=== PATIENT | female | born 1975 | race Caucasian/White ===

== ENCOUNTER → 2017-10-03 09:14 | Outpatient (CLI) | payer MEDICAID, SELFPAY ==
[2017-10-03 10:08] LABS: Abs Immature Grans 0.01 k/cumm (0.0-0.09); Absolute Basophil Count 0.01 k/cumm (0.0-0.2); Absolute Eosinophil Count 0.05 k/cumm (0.0-0.7); Absolute Lymphocyte Count 1.09 k/cumm (1.2-3.4); Absolute Monocyte Count 0.51 k/cumm (0.11-0.7); Absolute Neutrophil Count 2.27 k/cumm (1.2-6.7); Basophils % 0.3; Eosinophils % 1.3; HCT 35.9 % (36.0-46.0); Immature Grans % 0.3; Lymphocytes % 27.7; Mean Corp. HGB Concentration 33.4 g/dL (32.0-36.0); Mean Corpuscular Hemoglobin 28.3 pg (27.0-33.0); Mean Corpuscular Volume 84.7 fL (80-95); Mean Platelet Volume 11.6 fL (8.0-11.0); Monocytes % 12.9; Neutrophils % 57.5; Platelet Count 216 x1000/uL (130-400); RBC 4.24 m/cumm (4.00-5.20); White Blood Cell Count 3.94 k/cumm (4.4-10.8)
[2017-10-03 11:29] LABS: ALT 41 U/L (12-78); AST 24 U/L (15-37); Albumin 3.8 g/dL (3.4-5.0); Alkaline Phosphatase 92 U/L (46-116); Anion Gap 9.6 mmol/L (3-11); BUN 9 mg/dL (7-18); Bilirubin, Total 0.2 mg/dL (0.2-1.0); CO2 24.4 mmol/L (21.0-32.0); Calcium 8.4 mg/dL (8.5-10.1); Chloride 105 mmol/L (98-107); Cholesterol 171 mg/dL (50-200); Glucose 95 mg/dL (70-100); HDL Cholesterol 49 mg/dL (40-60); LDL CHOLESTEROL 106 mg/dL (<100); Potassium 4.2 mmol/L (3.5-5.1); Sodium 139 mmol/L (136-145); Total Protein 7.2 g/dL (6.4-8.2); Triglyceride 109 mg/dL (30-150)
== END ==
PROVIDERS: PCP Nurse Practitioner; Visit Provider Nurse Practitioner
DX: E03.9 Hypothyroidism, unspecified (principal); Z13.220 Encounter for screening for lipoid disorders
CPT/HCPCS: 36415; 80053; 80061; 83721; 84443; 85025

== ENCOUNTER → 2017-10-09 00:57 | Outpatient (CLI) | payer MEDICAID, SELFPAY ==
--- NOTE | 2017-10-09 10:51 | DI.REPORT_ITS ---
SYMPTOM/DIAGNOSIS: SCREENING, BREAST CANCER SCREENING Z12.31 MAMMOGRAM: 10/09 Mammograms were interpreted according to the usual protocol including computer analysis with CAD system, tomosynthesis and C view imaging. The breasts are of moderate density with fairly symmetrical distribution of fibroglandular tissue. No dominant mass or clumped microcalcification is identified in either breast. Today's examination is a baseline examination. CONCLUSION: No specific evidence of malignancy at this time. Routine screening at yearly intervals in this age group according to the ACS/ACR guidelines. Category 1 breast density category B. MQSA ASSESSMENT OF FINDINGS: Negative. Category 1. Patient will receive a letter notifying them of these results. BI-RADS category B. There are scattered areas of fibroglandular density.
== END ==
PROVIDERS: PCP Nurse Practitioner; Visit Provider Nurse Practitioner
DX: Z12.31 Encounter for screening mammogram for malignant neoplasm of breast (principal)
CPT/HCPCS: 77063; 77067

== ENCOUNTER 2018-08-11 11:06 | Outpatient (CLI) | payer MEDICAID, SELFPAY ==
[2018-08-11 12:25] LABS: TSH (W/Ref FT4) 0.76 uIU/mL (0.358-3.74)
== END 2018-08-11 11:26 ==
PROVIDERS: PCP Nurse Practitioner; Visit Provider Nurse Practitioner
DX: E03.9 Hypothyroidism, unspecified (principal)
CPT/HCPCS: 36415; 84443

== ENCOUNTER → 2019-09-24 02:47 | Outpatient (CLI) | payer SELFPAY ==
[2019-09-24 08:51] LABS: HCT 34.8 % (36.0-46.0); HGB 11.1 g/dL (11.2-15.7); MCH 25.8 pg (27.0-33.0); MCHC 31.9 % (32.0-36.0); MCV 80.9 fL (80-95); MPV 11.3 fL (8.0-11.0); Platelet Count 284 10^3/uL (130-400); RDW 13.7 % (11.7-14.6); RDW-SD 40.1 fL; WBC 4.81 10^3/uL (4.4-10.8)
[2019-09-24 09:46] LABS: ALT 32 U/L (14-59); AST 17 U/L (15-37); Albumin 3.8 g/dL (3.4-5.0); Alkaline Phosphatase 98 U/L (46-116); Anion Gap 9.2 mmol/L (3-11); BUN 14 mg/dL (7-18); Bilirubin, Total 0.3 mg/dL (0.2-1.0); CO2 23.8 mmol/L (21.0-32.0); Calcium 8.4 mg/dL (8.5-10.1); Calculated LDL 136 mg/dL (<100); Chloride 106 mmol/L (98-107); Cholesterol 191 mg/dL (<200); Glucose 97 mg/dL (74-106); HDL Cholesterol 40 mg/dL (40-60); Sodium 139 mmol/L (136-145); TSH (W/Ref FT4) 1.05 uIU/mL (0.36-3.74); Total Protein 7.3 g/dL (6.4-8.2); Triglyceride 77 mg/dL (<150)
== END ==
PROVIDERS: PCP Nurse Practitioner; Visit Provider Nurse Practitioner
DX: E03.9 Hypothyroidism, unspecified (principal); E66.9 Obesity, unspecified; F32.9 Major depressive disorder, single episode, unspecified; I10 Essential (primary) hypertension
CPT/HCPCS: 36415; 80053; 80061; 85027; 84443

== ENCOUNTER 2020-08-10 14:18 | Outpatient (REF) | payer OTHER, SELFPAY ==
--- NOTE | 2020-08-10 13:30 | PAPFT_PTH ---
PATIENT: Daphne Samson LOC: [facility] U#:[id number] AGE/SX: 44/F ROOM: RE08/10/[address]: Minerva Muse APRN : 1975 BED: DIS: 08/10/2020 SPEC #: [id number] RECD: 08/11/20 12:33 STATUS: FLORINA REMahad #: [id number] CHARLENE: 08/10/20 13:[address]: Minerva Muse DEPT: [facility] Cytology RECD BY: Marie Rodriguez Tissues: 1 - CX/ENDOCX FOR PAP SMEARS Procedures: PAP THIN PREP/UVM Screening HPV DNA PROBE Comments: [id number]
== END 2020-08-10 14:19 | disposition home or self-care (01) ==
LOC: LBN 14:18
PROVIDERS: PCP Nurse Practitioner; Visit Provider Nurse Practitioner
DX: Z12.4 Encounter for screening for malignant neoplasm of cervix (principal); Z11.51 Encounter for screening for human papillomavirus (HPV)
CPT/HCPCS: 88142; 87624

== ENCOUNTER 2020-08-16 03:09 | Outpatient (CLI) | payer OTHER, SELFPAY ==
[2020-08-16 12:28] LABS: HCT 33.5 % (36.0-46.0); HGB 10.5 g/dL (11.2-15.7); MCH 24.5 pg (27.0-33.0); MCHC 31.3 % (32.0-36.0); MCV 78.1 fL (80-95); MPV 11.3 fL (8.0-11.0); Platelet Count 320 10^3/uL (130-400); RBC 4.29 10^6/uL (3.93-5.22); RDW 14.3 % (11.7-14.6); RDW-SD 40.5 fL; WBC 4.81 10^3/uL (4.4-10.8)
[2020-08-16 14:14] LABS: ALT 25 U/L (14-59); AST 19 U/L (15-37); Albumin 3.9 g/dL (3.4-5.0); Alkaline Phosphatase 86 U/L (46-116); Anion Gap 10.7 mmol/L (3-11); BUN 9 mg/dL (7-18); Bilirubin, Total 0.3 mg/dL (0.2-1.0); CO2 24.3 mmol/L (21.0-32.0); CREATININE 0.7 mg/dL (0.55-1.02); Calcium 8.7 mg/dL (8.5-10.1); Calculated LDL 106 mg/dL (<100); Chloride 104 mmol/L (98-107); Cholesterol 175 mg/dL (<200); Glucose 77 mg/dL (74-106); HDL Cholesterol 43 mg/dL (40-60); Potassium 4.2 mmol/L (3.5-5.1); Sodium 139 mmol/L (136-145); TSH (W/Ref FT4) 0.83 uIU/mL (0.36-3.74); Total Protein 7.4 g/dL (6.4-8.2); Triglyceride 133 mg/dL (<150)
== END 2020-08-16 03:10 | disposition home or self-care (01) ==
LOC: LBO 03:09
PROVIDERS: PCP Nurse Practitioner; Visit Provider Nurse Practitioner
DX: E03.9 Hypothyroidism, unspecified (principal); Z00.00 Encounter for general adult medical examination without abnormal findings; Z13.220 Encounter for screening for lipoid disorders
CPT/HCPCS: 36415; 80053; 80061; 85027; 84443

== ENCOUNTER 2020-08-24 01:39 | Outpatient (CLI) | payer OTHER, SELFPAY ==
--- NOTE | 2020-08-24 09:00 | DI.MAMMO_ITS ---
Exam(s) MAMMO SCREENING EXAM: MAMMO SCREENING CLINICAL HISTORY: screening Z12.39. TECHNIQUE: Bilateral full field digital CC and MLO mammographic images were obtained with 3D tomosyn thesis and utilizing computer aided detection (CAD). COMPARISON: Prior 2018 baseline mammogram FINDINGS: There are no new spiculated masses nor malignant appearing microcalcification groups. There is no significant architectural distortion nor skin thickening-retraction. IMPRESSION: No radiographic evidence of malignancy. No significant change compared to the prior baseline mammogra m performed in 2018 BI-RADS Category 1 - Negative Breast Density - Category B - Scattered areas of fibroglandular density Breast density Category C or D implies that the patient has dense breast tissue. Dense breast tissue can make it harder to find cancer on a mammogram. Dense breast tissue is also associated with an incr eased risk of breast cancer. This information about the result of the mammogram report was provided to the patient to raise their awareness. Use this report when you speak with the patient about their risks for breast cancer, which includes their family history. At that time, you may recommend additional screening tests (Ultrasoun d or MRI) as these tests may add significant information. A negative radiographic report should not delay biopsy if a dominant or clinically suspicious mass is present. Up to ten percent of cancers are not identified on mammography. A negative report may reinforce clinical impression. Adenosis and dense breasts may obscure an underlying neoplasm. False positive reports average 6 to 10%. Patient will receive a letter notifying them of these results.
== END 2020-08-24 01:59 ==
PROVIDERS: PCP Nurse Practitioner; Visit Provider Nurse Practitioner
DX: Z12.31 Encounter for screening mammogram for malignant neoplasm of breast (principal); R92.8 Other abnormal and inconclusive findings on diagnostic imaging of breast
CPT/HCPCS: 77063; 77067

== ENCOUNTER 2020-12-16 12:26 | Outpatient (REF) | payer OTHER, SELFPAY | END 2020-12-16 12:27 | disposition home or self-care (01) | LOC: LBN 12:26 | PROVIDERS: PCP Nurse Practitioner | DX: Z20.822 Contact with and (suspected) exposure to COVID-19 (principal) | CPT/HCPCS: U0003 ==

== ENCOUNTER 2020-12-29 17:34 | Outpatient (REF) | payer OTHER, SELFPAY ==
[2020-12-30 20:34] LABS: COVID-19 RT-PCR UVMMC Result Negative (Negative)
== END 2020-12-29 17:35 | disposition home or self-care (01) ==
LOC: LBN 17:34
PROVIDERS: PCP Nurse Practitioner; Visit Provider Pediatrics
DX: Z20.822 Contact with and (suspected) exposure to COVID-19 (principal)
CPT/HCPCS: U0003

== ENCOUNTER 2021-03-20 17:11 | Outpatient (REF) | payer OTHER, SELFPAY ==
[2021-03-20 17:31] LABS: Source Nasal/Nares
[2021-03-20 19:59] LABS: COVID-19 PCR Negative (Negative)
== END 2021-03-20 17:12 | disposition home or self-care (01) ==
LOC: LBN 17:11
PROVIDERS: PCP Nurse Practitioner; Visit Provider Student in an Organized Health Care Education/Training Program
DX: Z20.822 Contact with and (suspected) exposure to COVID-19 (principal)
CPT/HCPCS: 87635

== ENCOUNTER 2021-09-05 02:52 | Outpatient (CLI) | payer OTHER, SELFPAY ==
[2021-09-05 07:49] LABS: Hemoglobin A1C 5.9 % (<5.7)
[2021-09-05 09:23] LABS: ALT 14 U/L (14-59); AST 14 U/L (15-37); Albumin 3.8 g/dL (3.4-5.0); Alkaline Phosphatase 82 U/L (46-116); Anion Gap 12.4 mmol/L (3-11); BUN 14 mg/dL (7-18); Bilirubin, Total 0.3 mg/dL (0.2-1.0); CO2 25.6 mmol/L (21.0-32.0); CREATININE 0.8 mg/dL (0.55-1.02); Calcium 8.6 mg/dL (8.5-10.1); Calculated LDL 115 mg/dL (<100); Chloride 104 mmol/L (98-107); Cholesterol 177 mg/dL (<200); Glucose 89 mg/dL (74-106); HDL Cholesterol 43 mg/dL (40-60); Potassium 3.6 mmol/L (3.5-5.1); Sodium 142 mmol/L (136-145); TSH (W/Ref FT4) 1.99 uIU/mL (0.36-3.74); Total Protein 7.5 g/dL (6.4-8.2); Triglyceride 97 mg/dL (<150)
== END 2021-09-05 02:53 | disposition home or self-care (01) ==
LOC: LBO 02:53
PROVIDERS: PCP Nurse Practitioner; Visit Provider Nurse Practitioner
DX: E03.9 Hypothyroidism, unspecified (principal); I10 Essential (primary) hypertension; E11.9 Type 2 diabetes mellitus without complications; E66.9 Obesity, unspecified
CPT/HCPCS: 36415; 80053; 80061; 83036; 84443

== ENCOUNTER 2022-03-04 09:30 | Emergency (ER) | payer OTHER, SELFPAY ==
[2022-03-04 09:32] VITALS: BP 151/99; PULSE 99; RESP 17; TEMP 36.5; O2SAT 100
--- NOTE | 2022-03-04 09:45 | RT.EKG_ITS ---
APPROVED REPORT Exam: Resting ECG Reason for Exam: epigastric pain Patient Location: E HR:94 bpm ECG Measurements Heart Rate 94 AXIS NH 195 P 54 QRSd 109 QRS 25 QT 388 T 44 QTc 487 Conclusion Sinus rhythm...normal P axis, V-rate 60- 99 Nonspecific repolarization abnormalities...ST dep, T neg, 2-3 leads
--- NOTE | 2022-03-04 10:00 | DI.CT_ITS ---
Exam(s) CT ABDOMEN PELVIS W EXAM: CT ABDOMEN PELVIS W CLINICAL HISTORY: n/v, upper abdominal pain. TECHNIQUE: Imaging Protocol: Axial computed tomography images with coronal and sagittal reformatted images were created and reviewed CONTRAST MATERIAL: Intravenous: Omnipaque 350 Contrast volume:100 ml Oral: no FINDINGS: ABDOMEN: Lung Bases: Normal where visualized. Small hiatal hernia. Liver: Normal density. No measurable mass. Gallbladder and biliary tract: No radiodense calculus or dilation. Pancreas: Normal density, no abnormal calcifications or inflammatory process. Spleen: Normal. Kidneys: Normal size, contour and axis. No radiodense stones or obstructive uropathy. No masses seen. Adrenal glands: No masses seen. Abdominal Aorta: Abdominal portion non-dilated. PELVIS: Bladder: No gross wall thickening. No calculi.No focal mass. Bowel: No obstruction. The majority of colon is collapse. Question of diffuse colonic wall thickeni ng to could indicate colitis.. Appendix normal. Peritoneal cavity: No ascites, collection or mesenteric inflammatory response. Bones: Within normal limits for age. Reproductive organs: 9 x 6 centimeter simple appearing cyst of the right ovary. This deviates the ut erus toward the left. A cyst measuring 6.7 cm in maximal dimension was noted in 2009 pelvic ultrasou nd. Left ovary appears normal. Tampon in the vagina. Lymph nodes: Unremarkable. Impression: Diffuse colonic wall thickening consistent with colitis. 9 x 6 centimeter simple appearing cyst of right ovary. RADIATION DOSE DELIVERED: 1,187.03mGy.cm Total DLP DATA REPOSITORY: All CT scans at this facility are submitted to the National Radiology Data Registry (NRDR) Dose Index Registry (DIR) with the [employer] (ACR). RADIATION OPTIMIZATION: All CT scans at this facility use at least one of these dose optimization te chniques: automated exposure control; mA and/or kV adjustment per patient size (includes targeted exa ms where dose is matched to clinical indication); or iterative reconstruction.
--- NOTE | 2022-03-04 10:02 | ED.GENADUL_ITS ---
Discharge Plan Disposition Patient Disposition: Home Condition: Stable Discharge Details Clinical Impression: Nausea & vomiting, Acute epigastric pain, Ovarian cyst Primary Care Provider: Minerva Muse ED Provider: Randy Murphy Home Meds and New Rx's Prescriptions: New ondansetron 4 mg tablet,disintegrating 4 mg PO Q8H PRN (Reason: nausea and vomiting) Qty: 30 0RF Continued buspirone 10 mg tablet 10 mg PO BID Qty: 180 3RF levothyroxine 125 mcg tablet 125 mcg PO DAILY Qty: 90 3RF sertraline [Zoloft] 100 mg tablet 200 mg PO DAILY Qty: 180 3RF Rx Instructions: anxiety and panic attacks semaglutide (weight loss) 2.4 mg/0.75 mL pen injector 2.4 mg subcut QWEEK Qty: 3 2RF Discharge Instructions Instructions: Acute Nausea and Vomiting (ED) Additional Instructions: you had evidence of inflammatin of the bowels which is likely due to a food illness or stomach bug. Both of these usually resolve without intervention in 1- 3 days you also were found to have a cyst of your ovary on the right side. Call women's wellness to arrange a follow up appointment [phone] if you feel more ill, have severe worsening pain or persistent vomiting return to the emergency department Medical Decision Making 46 yo female with hx of hypothyroidism, anxiety, prior tubal ligation who comes in with n/v and epigastric pain since last night shortly after eating meatloaf. She denies fevers, chills, chest pain, dyspnea. She states during the day she felt well yesterday. She is in no distress speaking clearly. She has clear lungs, no murmurs, soft abdomen though is tender without guarding in the ruq and epigastric area. Given rapid onset of symptoms suspect this could be food related illness, but given persistent symptoms and location of her pain will obtain cbc, cmp, troponin and CT to evaluate for possible cholecystitis and less likely sbo pt's labs show mild microcytic anemia that she has had in the past, she states she is supposed to be taking iron supplements but hasn't. She has evidence of colitis on the CT and also a 9x6cm cystic structure in the right hemipelvis which is likely ovarian cyst. She feels better after she had compazine, tolerating po and has no pain and denies ever having any pain in her lower abdomen or pelvis so feel this is likely an incidental finding, doubt torsion and do not feel u/s indicated currently. She is stable for d/c, will provide prescription for antiemetics and will also have her follow up with women's wellness, return precautions given Differential Diagnosis Differential Diagnosis: gastroenteritis, pancreatitis, cholecystitis Imaging Data Radiologic Study: Attestation: I personally reviewed and interpreted this imaging study as follows: Imaging: CT Scan Radiologist's impression: IMPRESSION: 1. Low-attenuation bowel wall thickening is seen throughout the colon consistent with colitis. Differential diagnosis includes infectious and inflammatory etiologies.. 2. 9 by 6 cm cystic structure in the right hemipelvis may represent right ovarian cyst or cystadenoma of the ovary. Malignancy left likely given the lack soft tissue density within the cystic structure Recommend further evaluation. Lab Data Lab results reviewed: Yes I reviewed the patient's lab results. ECG Data Attestation: I personally reviewed and interpreted this ECG (s) as follows: Prior ECG tracings: not available for review Interpretation: sinus rhythm rate of 94, no acute st t wave ischemic findings HPI General Mode of arrival: ambulatory . Date/Time Provider Initiated Documentation: 03/04/22 09:47 . Limitations to Documentation: no limitations . Information obtained by: patient . History of Present Illness 46 year old F presents to the emergency department with the chief complaint of n/v, described as moderate, Patient started experiencing this day(s) (1) and it has been intermittent. No relieving factors improve symptom(s), No exacerbating factors reported . Patient notes denies fever/chills. Patient did receive the following treatments prior to arrival, none Related Data Home Medications Medication Instructions Recorded Confirmed buspirone 10 mg tablet 10 mg PO BID #180 tab-caps 08/17/21 03/04/22 levothyroxine 125 mcg tablet 125 mcg PO DAILY #90 tab-caps 08/17/21 03/04/22 sertraline 100 mg tablet (Zoloft) 200 mg PO DAILY #180 tabs 08/17/21 03/04/22 semaglutide (weight loss) 2.4 2.4 mg (0.75 mL) subcut QWEEK #3 mL 01/04/22 03/04/22 mg/0.75 mL subcutaneous pen injector ondansetron 4 mg disintegrating 4 mg PO Q8H PRN nausea and 03/04/22 tablet vomiting #30 tabs Previous Rx's Medication Instructions Recorded buspirone 10 mg tablet 10 mg PO BID #180 tab-caps 08/17/21 levothyroxine 125 mcg tablet 125 mcg PO DAILY #90 tab-caps 08/17/21 sertraline 100 mg tablet (Zoloft) 200 mg PO DAILY #180 tabs 08/17/21 semaglutide (weight loss) 2.4 2.4 mg (0.75 mL) subcut QWEEK #3 mL 01/04/22 mg/0.75 mL subcutaneous pen injector ondansetron 4 mg disintegrating 4 mg PO Q8H PRN nausea and 03/04/22 tablet vomiting #30 tabs Allergies Allergy/AdvReac Type Severity Reaction Status Date / Time No Known Allergies Allergy Verified 03/04/22 09:38 General Stated Complaint: Abd Prob ROBBIE: 3 Review of Systems All systems reviewed & are unremarkable except as noted in HPI and below Constitutional Constitutional: Denies chills, Denies fever(s) and Denies weakness Cardiovascular Cardiovascular: Denies chest pain and Denies dyspnea Respiratory Respiratory: Denies cough and Denies dyspnea Musculoskeletal Musculoskeletal: Denies joint swelling Neurologic Neurologic: Denies weakness PFSH All Active Problems (Updated 03/04/22 @ 12:21 by Randy Murphy MD) Nausea & vomiting (Acute) Acute epigastric pain (Acute) Ovarian cyst (Acute) Prediabetes (Acute) Screening for cholesterol level (Acute) Routine gynecological examination (Acute) Routine medical exam (Acute) Obesity (Chronic) Depressive disorder (Chronic 04/19/11) Rupture of anterior cruciate ligament of left knee (Acute 05/17/17) Rupture of anterior cruciate ligament of knee (Acute 09/19/17) Obesity, unspecified (Acute 04/24/12) Mgrn wo aura wo intrc mgr (Acute 04/19/11) Used to get routinely; now only prn and treated easily with Motrin Lipoma of face (Acute 06/04/16) Hypothyroidism (Acute 04/09/11) Anxiety state (Acute 04/19/11) With panic Acute medial meniscus tear of left knee (Acute 05/17/17) Medical History Depressive disorder (04/19/11) Obesity Surgical History Tubal Ligation, Laparoscopic 2008 Incidental finding of ovarian cyst and removed with this surgery Family History Mother COPD (chronic obstructive pulmonary disease) Father Personal history of malignant neoplasm lung Social History (Updated 08/17/21 @ 13:15 by Ruby Toussaint LPN) Smoking/Tobacco Use Status: Never Smoking risk assessment performed?: Yes Alcohol Intake: current Alcohol Intake frequency: a few times a month Alcohol type: wine Drug use: Never Substance use type: does not use Adopted: No Household members: spouse and children Housing: house Number of Children: 3 number of grandchildren: 2 Communication Needs: None Education Level: college 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 [employer] Do you think of yourself as: straight/heterosexual What is your relationship status?: How often do you talk on the phone with friends or family?: three or more times per week How often do you get together with friends or relatives?: once per week Panel score (0-1 are the most socially isolated patients): 2 What type of physical activity do you participate in: walking Duration: 30-45 minutes/day Frequency: 5-6 times per week Seatbelt use: always Drive intox or ride w/intox passenger coach driver: No Working smoke detector in home: Yes Fire extinguisher in home: Yes Carbon monox detector in home: Yes Do you feel safe at home: No Do you feel safe in your relationship?: Yes Victim of physical abuse: No Victim of emotional abuse: No Victim of sexual abuse: No Would you like helpful sources: No Exam Const General: no acute distress Orientation: alert HENMT Head: normal to inspection Ears: external ears normal General nose exam: external nose normal Mouth: moist mucous membranes Eyes General: appearance normal, both eyes and all related structures Neck Neck: normal visual inspection Resp Effort & Inspection: normal respiratory effort and able to speak in complete sentences Auscultation: clear to auscultation bilaterally Cardio Rate: regular rate Heart Sounds: no murmurs GI Palpation: soft and tender Skin General skin exam: no rashes or lesions noted Neuro General: patient alert and patient oriented x3 Extrem General: normal to inspection Psych Mental Status: mental status grossly normal Course Vital Signs Vital signs: Vital Signs Temperature 36.5 C 03/04/22 09:32 Pulse 99 H 03/04/22 09:32 Respiratory Rate 17 03/04/22 09:32 Blood Pressure 151/99 H 03/04/22 09:32 Pulse Oximetry 100 03/04/22 09:32 Temperature 36.5 C 03/04/22 09:32 Temperature Source Temporal Artery Scan 03/04/22 09:32 Pulse 99 H 03/04/22 09:32 Respiratory Rate 17 03/04/22 09:32 Respiratory Effort Non-Labored 03/04/22 09:36 Blood Pressure 151/99 H 03/04/22 09:32 Blood Pressure Position Sitting 03/04/22 09:32 Pulse Oximetry 100 03/04/22 09:32 Oxygen Delivery Method Room Air 03/04/22 09:32 Oxygen Flow Rate 0 03/04/22 09:32 Pain Level 5 03/04/22 09:32 PAWSS Have you Been Recently Intoxicated or Drunk Within the Last 30 days?: No Have you Ever Experienced Previous Episodes of Alcohol Withdrawal?: No Have you ever Experienced Withdrawal Seizures?: No Have you ever Experienced Delirium Tremens(DT)s?: No Have you ever undergone Alcohol Rehabilitation Treatment (i.e, inpt ot outpa tient treatment programs)?: No Have you ever Experienced Blackouts?: No Have you ever Combined Alcohol with other Downers within the last 90 days?: No Have you ever Combined Alcohol with any other Substance of Abuse during the last 90 days?: No Result: 0
[2022-03-04] MEDS: Normal Saline 1,000 ML 1000 ML IV (10:12)
[2022-03-04] MEDS: Ondansetron 4 MG/2 ML VIAL IVP (10:12)
[2022-03-04 10:13] LABS: BE (Venous) -2 mmol/L (-2-3); HCO3 (Venous) 22 mmol/L (23-28); O2 Sat (Venous) 83 %; TCO2 (Venous) 20 mmol/L (24-29); pCO2 (Venous) 33 mmHg (41-51); pH (Venous) 7.43 (7.31-7.41); pO2 (Venous) 42 mmHg
[2022-03-04 10:15] LABS: Abs Immature Grans 0.01 10^3/uL (0.0-0.06); Absolute Basophil Count 0.01 10^3/uL (0.0-0.2); Absolute Eosinophil Count 0.06 10^3/uL (0.0-0.7); Absolute Monocyte Count 0.09 10^3/uL (0.1-0.8); Absolute Neutrophil Count 6.55 10^3/uL (1.2-6.7); Basophils % 0.1; Eosinophils % 0.8; HCT 35.6 % (36.0-46.0); HGB 11.3 g/dL (11.2-15.7); Immature Grans % 0.1; Lymphocytes % 6.9; MCH 23.9 pg (27.0-33.0); MCHC 31.7 % (32.0-36.0); MCV 75 fL (80-95); MPV 11.2 fL (8.0-11.0); Monocytes % 1.2; Neutrophils % 90.9; Platelet Count 384 10^3/uL (130-400); RBC 4.72 10^6/uL (3.93-5.22); RDW 14.4 % (11.7-14.6); RDW-SD 38.7 fL; WBC 7.22 10^3/uL (4.4-10.8)
[2022-03-04] MEDS: Omnipaque 350 MG/ML 100 ML BTL IJ (10:33)
[2022-03-04] MEDS: Normal Saline - Diluent 50 ML VIAL IJ (10:33)
[2022-03-04] MEDS: Normal Saline Flush 10 ML SYR IVP (10:33)
[2022-03-04 10:42] LABS: ALT 25 U/L (14-59); AST 21 U/L (15-37); Albumin 4.7 g/dL (3.4-5.0); Alkaline Phosphatase 119 U/L (46-116); Anion Gap 11.4 mmol/L (3-11); BUN 9 mg/dL (7-18); Bilirubin, Total 0.4 mg/dL (0.2-1.0); CO2 23.6 mmol/L (21.0-32.0); CREATININE 0.9 mg/dL (0.55-1.02); Chloride 101 mmol/L (98-107); Estimated GFR 80.84 (mL/min/1.73m2); Glucose 153 mg/dL (74-106); Lipase 98 U/L (73-393); Magnesium 2.1 mg/dL (1.8-2.4); Potassium 3.3 mmol/L (3.5-5.1); Sodium 136 mmol/L (136-145); Total Protein 9.3 g/dL (6.4-8.2); Troponin I < 50 ng/L (<or=60)
--- NOTE | 2022-03-04 10:57 | DI.VRAD_ITS ---
Addendum created by Amy Sainz MD on 03/04/2022 11:00:31 AM EST: THIS REPORT CONTAINS FINDINGS THAT MAY BE CRITICAL TO PATIENT CARE. The findings were verbally communicated via telephone conference with Randy Murphy at 11:00 AM EST on 03/04/2022. The findings were acknowledged and understood. We discussed if ovarian torsion is suspected to obtain duplex ultrasound Initial report created on 03/04/2022 10:57:25 AM EST: PROCEDURE INFORMATION: Exam: CT Abdomen And Pelvis With Contrast Exam date and time: 03/04/2022 10:34 AM Age: 46 years old Clinical indication: Other: N/v upper abdominal pain TECHNIQUE: Imaging protocol: Computed tomography of the abdomen and pelvis with contrast. Radiation optimization: All CT scans at this facility use at least one of these dose optimization techniques: automated exposure control; mA and/or kV adjustment per patient size (includes targeted exams where dose is matched to clinical indication); or iterative reconstruction. Contrast material: OMNIPAQUE 350; Contrast volume: 100 ml; Contrast route: INTRAVENOUS (IV); COMPARISON: MRI L LOWER JOINT WO CONT 10/15/2016 5:34 PM FINDINGS: Diaphragm: Small hiatal hernia Liver: Normal. No mass. Gallbladder and bile ducts: Normal. No calcified stones. No ductal dilation. Pancreas: Normal. No ductal dilation. Spleen: Normal. No splenomegaly. Adrenal glands: Normal. No mass. Kidneys and ureters: Normal. No hydronephrosis. Stomach and bowel: Low-attenuation bowel wall thickening is seen throughout the colon consistent with colitis. Differential diagnosis includes infectious and inflammatory etiologies.. Appendix: Normal appendix Intraperitoneal space: Unremarkable. No free air. No significant fluid collection. Vasculature: Unremarkable. No abdominal aortic aneurysm. Lymph nodes: Unremarkable. No enlarged lymph nodes. Urinary bladder: Unremarkable as visualized. Reproductive: 9 by 6 cm cystic structure in the right hemipelvis may represent right ovarian cyst or cystadenoma of the ovary. Recommend further evaluation. Bones/joints: Unremarkable. No acute fracture. Soft tissues: Unremarkable. IMPRESSION: 1. Low-attenuation bowel wall thickening is seen throughout the colon consistent with colitis. Differential diagnosis includes infectious and inflammatory etiologies.. 2. 9 by 6 cm cystic structure in the right hemipelvis may represent right ovarian cyst or cystadenoma of the ovary. Malignancy left likely given the lack soft tissue density within the cystic structure Recommend further evaluation. Dictated and Authenticated by: Amy Sainz MD. Ordering:HERMINIO Padilla MD
[2022-03-04 11:12] LABS: Bilirubin Negative (Negative); Blood Negative (Negative); Clarity Clear (Clear); Glucose Negative (Negative); Ketones 15 mg/dL (Negative); Leukocyte Esterase Negative (Negative); Nitrite Negative (Negative); Specific Gravity 1.015 (1.005-1.025); Urobilinogen 0.2 EU/dL (Up TO 0.2); pH 7.5 (5-8)
[2022-03-04] MEDS: Prochlorperazine 10 MG/2 ML VIAL IVP (11:28)
--- NOTE | 2022-03-04 12:22 | NUR.NOTE ---
Nursing Note: Referral faxed to [facility] for ovarian cyst; this week.
[2022-03-04 12:23] VITALS: BP 148/95; PULSE 115; RESP 16; O2SAT 100
== END 2022-03-04 12:32 | disposition home or self-care (01) ==
PROVIDERS: Emergency Provider Emergency Medicine; PCP Nurse Practitioner
DX: N83.201 Unspecified ovarian cyst, right side (principal); R11.2 Nausea with vomiting, unspecified; R10.13 Epigastric pain; E03.9 Hypothyroidism, unspecified; D50.9 Iron deficiency anemia, unspecified; Z98.51 Tubal ligation status
CPT/HCPCS: 36415; 80053; 82805; 83690; 93005; 96361; 96374; 96375; 99285; 74177; 81003; 83735; 84484; 85025; 93010; J0780; J2405; J3490

== ENCOUNTER 2022-06-29 00:31 | Outpatient (CLI) | payer OTHER, SELFPAY | END 2022-06-29 00:51 | PROVIDERS: PCP Nurse Practitioner; Visit Provider Nurse Practitioner | DX: Z12.31 Encounter for screening mammogram for malignant neoplasm of breast (principal) | CPT/HCPCS: 77063; 77067 ==

== ENCOUNTER 2022-07-02 02:57 | Outpatient (CLI) | payer OTHER, SELFPAY ==
[2022-07-02 08:30] LABS: ALT 22 U/L (14-59); AST 15 U/L (15-37); Albumin 3.6 g/dL (3.4-5.0); Alkaline Phosphatase 91 U/L (46-116); Anion Gap 8.4 mmol/L (3-11); BUN 13 mg/dL (7-18); Bilirubin, Total 0.2 mg/dL (0.2-1.0); CO2 25.6 mmol/L (21.0-32.0); CREATININE 0.9 mg/dL (0.55-1.02); Calcium 8.7 mg/dL (8.5-10.1); Chloride 103 mmol/L (98-107); Estimated GFR 80.84 (mL/min/1.73m2); Glucose 87 mg/dL (74-106); Sodium 137 mmol/L (136-145); Total Protein 7.7 g/dL (6.4-8.2)
== END 2022-07-02 02:58 | disposition home or self-care (01) ==
LOC: LBO 02:58
PROVIDERS: Absent Provider Nurse Practitioner; PCP Nurse Practitioner; Referring Provider Nurse Practitioner; Visit Provider Nurse Practitioner
DX: R79.89 Other specified abnormal findings of blood chemistry (principal); R73.03 Prediabetes; E66.8 Other obesity; E03.9 Hypothyroidism, unspecified
CPT/HCPCS: 36415; 80053

== ENCOUNTER 2022-10-09 03:01 | Outpatient (CLI) | payer OTHER, SELFPAY ==
[2022-10-09 09:30] LABS: TSH (W/Ref FT4) 2.01 uIU/mL (0.36-3.74)
[2022-10-10 10:08] LABS: CA 125 27 U/mL (<30)
== END 2022-10-09 03:02 | disposition home or self-care (01) ==
LOC: LBO 03:01
PROVIDERS: Obstetrics & Gynecology; Absent Provider Nurse Practitioner; PCP Nurse Practitioner; Referring Provider Nurse Practitioner; Visit Provider Nurse Practitioner
DX: E03.9 Hypothyroidism, unspecified
CPT/HCPCS: 36415; 86304; 84443

== ENCOUNTER 2022-12-04 13:43 | Outpatient (CLI) | payer OTHER, SELFPAY ==
[2022-12-04 12:31] LABS: HCT 31.6 % (36.0-46.0); HGB 9.7 g/dL (11.2-15.7); MCH 23.8 pg (27.0-33.0); MCHC 30.7 % (32.0-36.0); MCV 78 fL (80-95); MPV 10.8 fL (8.0-11.0); Platelet Count 353 10^3/uL (130-400); RBC 4.08 10^6/uL (3.93-5.22); RDW 14.8 % (11.7-14.6); RDW-SD 41.3 fL; WBC 5.39 10^3/uL (4.4-10.8)
== END 2022-12-04 13:44 | disposition home or self-care (01) ==
LOC: LBO 13:43
PROVIDERS: PCP Nurse Practitioner; Visit Provider Obstetrics & Gynecology
DX: Z01.818 Encounter for other preprocedural examination (principal)
CPT/HCPCS: 36415; 85027; 86850; 86900; 86901

== ENCOUNTER 2022-12-05 08:22 | Day surgery (SDC) | payer OTHER, SELFPAY ==
[2022-12-05] VITALS (8 sets, daily range): BP systolic 87–127; BP diastolic 56–95; PULSE 61–85; RESP 16–20; TEMP 36.6–36.8; O2SAT 96–100; BMI 36.6
[2022-12-05] MEDS: Lactated Ringers 1,000 ML 80 ML IV ×2 (08:52→11:55)
--- NOTE | 2022-12-05 09:04 | ANES.PREOP_ITS ---
General Info Date of Service Date Performed: 12/05/22 Height: 5 ft 5 in Weight: 99.8 kg Body Mass Index (BMI): 36.6 Surgical Procedure: Operation Date: 12/05/22 09:25 Proposed Procedure Side Surgeon p Ovarian Cystectomy Laparoscopic vs Oophorectomy Right Camelia Amaya MD Meds Allergies and Home Medications Allergies Allergy/AdvReac Type Severity Reaction Status Date / Time No Known Allergies Allergy Verified 12/05/22 08:38 Home Medication Medication Instructions Recorded buspirone 10 mg tablet 10 mg PO BID #180 tab-caps 07/25/22 levothyroxine 125 mcg tablet 125 mcg PO DAILY #90 tab-caps 07/25/22 sertraline 100 mg tablet (Zoloft) 200 mg PO DAILY #180 tabs 07/25/22 semaglutide (weight loss) 2.4 2.4 mg (0.75 mL) subcut QWEEK #3 mL 10/16/22 mg/0.75 mL subcutaneous pen injector Current Visit Medications: Current Medications Generic Name Dose Route Start Last Admin Trade Name Freq PRN Reason Stop Dose Admin Ringer's Solution 1,000 mls @ 80 mls/hr 12/05/22 06:00 12/05/22 08:52 IV 01/03/23 23:59 80 mls/hr INFUSION MU Administration IV Miscellaneous Supplies 1 each 12/05/22 06:00 Iv Access IV 01/03/23 23:59 DIRECTED MU Sodium Chloride 0 ml 12/05/22 06:00 Normal Saline Flush 10 Ml Syr IV 01/03/23 23:59 PRN PRN Sodium Chloride 0 ml 12/05/22 06:00 Normal Saline 10 Ml Vial IJ 01/03/23 23:59 DIRECTED PRN Sterile Water 0 ml 12/05/22 06:00 Water,Injection,Sterile 10 Ml Vial IJ 01/03/23 23:59 DIRECTED PRN PFSH Active Problems Active Problems: Problem Status Onset Code Right ovarian cyst N83.201 Medical History Medical History Acute epigastric pain Acute medial meniscus tear of left knee (05/17/17) Anxiety state (04/19/11) With panic Depressive disorder (04/19/11) Hypothyroidism (04/09/11) Lipoma of face (06/04/16) Mgrn wo aura wo intrc mgr (04/19/11) Used to get routinely; now only prn and treated easily with Motrin Obesity Prediabetes Rupture of anterior cruciate ligament of knee (09/19/17) Rupture of anterior cruciate ligament of left knee (05/17/17) Surgical History Surgical History Tubal Ligation, Laparoscopic 2008 Incidental finding of ovarian cyst and removed with this surgery Tobacco Smoking/Tobacco Use Status: Never Passive smoking exposure: No Alcohol Alcohol Intake: current Alcohol intake frequency: a few times a month Alcohol type: wine Substance Use Substance use: Never Substance use type: does not use Prental History History 3 Para 3 Hx # Term Pregnancies 3 Multiple births Hx # Pregnancies Ectopic pregnancies AB induced Hx Number of Living Children 3 AB spontaneous Vital Signs and Lab Results Vital Signs Most Recent Vital Signs in EMR: Most Recent Vital Signs Temp Pulse Resp BP Pulse Ox 36.6 C 85 17 127/95 H 100 12/05/22 08:40 12/05/22 08:40 12/05/22 08:40 12/05/22 08:40 12/05/22 08:40 Point of Care Results Point of Care Results: POC- Test(urine) Negative 12/05/22 08:40 Lab Results Blood Type / Crossmatch: Patient ABO/Rh O Positive 12/04/22 Antibody Screen NEGATIVE 12/04/22 Complete Blood Count: White Blood Count 5.39 10^3/uL (4.4-10.8) 12/04/22 12:14 Red Blood Count 4.08 10^6/uL (3.93-5.22) 12/04/22 12:14 Hemoglobin 9.7 g/dL (11.2-15.7) L 12/04/22 12:14 Hematocrit 31.6 % (36.0-46.0) L 12/04/22 12:14 Platelet Count 353 10^3/uL (130-400) 12/04/22 12:14 Complete Metabolic Panel: No Data to Display Liver Function Panel: No Data to Display Coagulation Panel: No Data to Display Cardiac Panel: No Data to Display Arterial Blood Gas: No Data to Display Venous Blood Gas: No Data to Display Pancreas Panel: No Data to Display Thyroid Panel: 2 No Data to Display Infectious Disease: No Data to Display Blood Cultures: No Data to Display Toxicology Panel: No Data to Display Panel: No Data to Display Anesthesia Assessment and Plan Anesthesia History Personal History: No History of Anesthesia Complications Family History: No Family History of Anesthesia Complications Exercise Tolerance Exercise Tolerance: Metabolic Equivalents>4 Pertinent Negatives Pertinent Negatives: No Symptoms of GERD Cardiac & Pulmonary Exam Cardiac Exam: Normal S1/S2 Heart Sounds Pulmonary Exam: Clear Bilateral Breath Sounds Implantable Cardiac Device Does patient have a Pacemaker or an ICD?: No Airway Exam Known Difficult Airway: No Mallampati Class: 2 Mouth Opening: Normal (> 3cm) Thyromental Distance: Greater than 3 cm Neck Range of Motion: Full ROM Neck Circumference: Normal Teeth Condition: Normal Dentition ASA Classification ASA Score: ASA 2 Emergency Case?: No NPO Status NPO Status: NPO Clears >2 hours, Solids >8 hours Status Status: Negative HCG Anesthesia Plan Resuscitation Status: Full Code Anesthesia Technique: General Anesthesia Airway Planned: Endotracheal Tube Monitors Used: Standard Monitors
[2022-12-05] MEDS: Bupivacaine 0.25% Pres-Free 30 ML VIAL (10:12)
--- NOTE | 2022-12-05 10:52 | OVAR_PTH ---
PATIENT: Daphne Samson LOC: [facility] U#:[id number] AGE/SX: 47/F ROOM: RE12/05/[address]: Camelia Amaay MD : 1975 BED: DIS: 12/05/2022 SPEC #: [id number] RECD: 12/05/22 12:57 STATUS: FLORINA REQ #: [id number] CHARLENE: 12/05/22 10:[address]: Camelia Amaya DEPT: Surgical Specimen RECD BY: Marie Rodriguez ENTERED: 12/05/22 12:59 SP TYPE: MINNIER WILDER DR: Minerva Muse APRN Tissues: 1 - OVARY NOT TUMOR W OR W/O TUBES Procedures: GROSS AND MICRO LEVEL 4 Comments: [id number]
--- NOTE | 2022-12-05 11:21 | W.PM.OP ---
Date of service: 12/05/22 Time of Service: 10:00 Operative Note Operative Note DATE OF PROCEDURE: 12/05/22 PRE-OP DIAGNOSIS: large right ovarian cyst POST-OP DIAGNOSIS: other (several medium size left ovarian cysts) PROCEDURE: Laparoscopic left ovarian cystectomy SURGEON: Camelia Amaya ASSISTING SURGEON: Nelly Newell Refer to Anesthesia Record ESTIMATED BLOOD LOSS: 50 COMPLICATIONS: None Patient was transported to: PACU Patient's condition: stable Indications: Pt had incidental finding of a large persistent simple right ovarian cyst, first documented in Feb of this year and most recently imaged in 10/03/22. She desired surgical removal. CA-125 was normal. Findings: On inspection of the pelvis there was no large cyst on the right ovary. The right ovary appeared normal. There was evidence of bilateral tubal ligation with interruption of both fallopian tubes. One filschie clip was noted adhesed to the peritoneum of the anterior cul de sac. The other clip was not seen. The left ovary was slightly enlarged with multiple smaller cysts. There were adhesions from the left ovary to the pelvic side wall and from the pelvic side wall to the left side of the uterus. The upper abdomen appeared normal on quick inspection. The appendix was not easily visualized. Procedure Description: After informed consent was signed the patient was taken to the operating room and given general anesthesia.? SCDs were placed on her legs.? She was prepped and draped in the dorsal lithotomy position in the [facility].? A time out was performed. Her bladder had been drained just prior to arrival. A speculum was placed into the vagina to expose the cervix and a hulka manipulator was placed into the cervix. The speculum was removed. Gloves were changed and attention was turned to the abdomen. The infraumbilical fold was grasped and injected with 0.25% marcaine with epinephrine. A 12mm incision was made in the infraumbilical fold with the scalpel. A hemostat was used to bluntly dissect the subcuticular layers. The visiport was then assembled and used to enter the abdomen under direct visualization. Once entrance to the abdominal cavity was confirmed the CO2 was turned on and the abdomen was insufflated. Two lateral 5mm ports were then placed under direct visualization. The previously mentioned findings were noted. Since the left ovary was enlarged with multiple cysts, the decision was made to proceed with cystectomy. This was done via a combination of sharp and blunt dissection with the bipolar scissors and the ligasure device. After the dissection was completed good hemostasis was noted on the ovarian bed. The camera was switched to a 5mm camera in the lateral port and a 10mm endocatch bag was inserted through the umbilical port. The specimen was placed into the bad and removed through the umbilical incision. The trocar was replaced and the pelvis was inspected. Good hemostasis was noted once again. The ports were removed. The gas was released from the abdomen. The fascia of the umbilical incision was identified and closed with a [id number] suture of 0 vicryl. The skin incisions were then closed with 4-0 vicryl. Mastisol and steristrips were placed. The manipulator was removed. The patient was placed back into the supine position.? She was moved to the stretcher and taken to the recovery room in stable condition.
--- NOTE | 2022-12-05 11:34 | W.PM.DS.N ---
Date of service: 12/05/22 Time of Service: 11:38 Discharge Plan Disposition Patient Disposition: Home Discharge Details Attending Provider: Camelia Amaya Primary Care Provider: Minerva Muse Home Meds and New Rx's Prescriptions: No Action semaglutide (weight loss) 2.4 mg/0.75 mL pen injector 2.4 mg subcut QWEEK Qty: 3 3RF buspirone 10 mg tablet 10 mg PO BID Qty: 180 3RF levothyroxine 125 mcg tablet 125 mcg PO DAILY Qty: 90 3RF sertraline [Zoloft] 100 mg tablet 200 mg PO DAILY Qty: 180 3RF Rx Instructions: anxiety and panic attacks Discharge Instructions Activity:: no lifting >20lbs Remove Dressings/Wound Care:: 24 hours Shower/Bathe:: 24 hours Diet:: As Tolerated DS: Data Vitals/I&O Vitals and I&O: Vital Signs Temperature 98.1 F 12/05/22 11:30 Pulse 72 12/05/22 11:30 Pulse Rhythm Regular 12/05/22 08:40 Respiratory Rate 20 12/05/22 11:30 Respiratory Depth Normal 12/05/22 08:40 Blood Pressure 98/63 L 12/05/22 11:30 Pulse Oximetry 97 12/05/22 11:30 Respiratory End-tidal CO2 46 12/05/22 11:30 Oxygen Delivery Method OxyMask 12/05/22 11:30 Oxygen Flow Rate 8 12/05/22 11:30 Pain Level 0 12/05/22 08:40 Intake & Output 12/04/22 12/04/22 12/05/22 11:59 23:59 11:59 Weight 220 lb 220 lb 0.341 oz Other: Emesis Description None [facility] Medical History (Updated 12/05/22 @ 11:40 by Camelia Amaya MD) Acute epigastric pain Acute medial meniscus tear of left knee (05/17/17) Anxiety state (04/19/11) With panic Depressive disorder (04/19/11) Hypothyroidism (04/09/11) 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 Persistent Vikram-Sept but then no right ovarian cyst intraoperatively. Rupture of anterior cruciate ligament of knee (09/19/17) Rupture of anterior cruciate ligament of left knee (05/17/17) Surgical History (Updated 12/05/22 @ 11:40 by Camelia Amaya MD) History of laparoscopy For large right ovarian cyst - but right cyst not visualized at time of surgery. However, left ovary with enlarged with multiple small cysts that were removed. Tubal Ligation, Laparoscopic 2008 Incidental finding of ovarian cyst and removed with this surgery Family History Mother COPD (chronic obstructive pulmonary disease) Father Personal history of malignant neoplasm lung Social History (Updated 08/17/21 @ 13:15 by Ruby Toussaint LPN) Smoking/Tobacco Use Status: Never Smoking risk assessment performed?: Yes Alcohol Intake: current Alcohol Intake frequency: a few times a month Alcohol type: wine Drug use: Never Substance use type: does not use Adopted: No Household members: spouse and children Housing: house Number of Children: 3 number of grandchildren: 2 Communication Needs: None Education Level: college 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 [employer] Do you think of yourself as: straight/heterosexual What is your relationship status?: How often do you talk on the phone with friends or family?: three or more times per week How often do you get together with friends or relatives?: once per week Panel score (0-1 are the most socially isolated patients): 2 What type of physical activity do you participate in: walking Duration: 30-45 minutes/day Frequency: 5-6 times per week Seatbelt use: always Drive intox or ride w/intox cpr ambulance driver: No Working smoke detector in home: Yes Fire extinguisher in home: Yes Carbon monox detector in home: Yes Do you feel safe at home: Yes Do you feel safe in your relationship?: Yes Victim of physical abuse: No Victim of emotional abuse: No Victim of sexual abuse: No Would you like helpful sources: No History History 3 Para 3 Hx # Term Pregnancies 3 Multiple births Hx # Pregnancies Ectopic pregnancies AB induced Hx Number of Living Children 3 AB spontaneous
--- NOTE | 2022-12-05 11:42 | W.PM.DSUDISC ---
Date of service: 12/05/22 Time of Service: 11:42 Discharge Plan Disposition Patient Disposition: Home Condition: Stable Discharge Details Attending Provider: Camelia Amaya Primary Care Provider: Minerva Muse Home Meds and New Rx's Prescriptions: No Action semaglutide (weight loss) 2.4 mg/0.75 mL pen injector 2.4 mg subcut QWEEK Qty: 3 3RF buspirone 10 mg tablet 10 mg PO BID Qty: 180 3RF levothyroxine 125 mcg tablet 125 mcg PO DAILY Qty: 90 3RF sertraline [Zoloft] 100 mg tablet 200 mg PO DAILY Qty: 180 3RF Rx Instructions: anxiety and panic attacks Discharge Instructions Activity:: no lifting >20lbs Remove Dressings/Wound Care:: 24 hours Shower/Bathe:: 24 hours Diet:: As Tolerated Discharge Orders Discharge Orders: Discharge Order (Routine); Ordered 12/05/22 Ordered By: Camelia Amaya
--- NOTE | 2022-12-05 12:34 | W.ANESPOSTOP ---
Postoperative Evaluation Date, Time and Location Date Performed: 12/05/22 Time Performed: 12:34 Patient Location: Day Surgery Unit Vital Signs Most Recent Imported Vital Signs: Most Recent Vital Signs Temp Pulse Resp BP Pulse Ox 36.6 C 62 17 108/78 98 12/05/22 12:04 12/05/22 12:04 12/05/22 12:04 12/05/22 12:04 12/05/22 12:04 Pain Score Most Recent Pain Score: Most Recent Pain Score Pain Level 0 12/05/22 12:04 Assessment Mental Status: Awake (Alert & Oriented to Patient Baseline) Airway and Respiratory Function: Patent airway with normal (patient baseline) respiratory exam Cardiovascular Function: Hemodynamically Stable Hydration Status: Adequately Hydrated Nausea & Vomiting: No Nausea or Vomiting Pain: Pain is tolerable per patient Peripheral Nerve Block: Patient did not receive a nerve block
== END 2022-12-05 12:50 | disposition home or self-care (01) ==
PROVIDERS: PCP Nurse Practitioner; Visit Provider Obstetrics & Gynecology
PROC: (CPT 58662; principal; 2022-12-05 09:15)
DX: N83.12 Corpus luteum cyst of left ovary (principal); E03.9 Hypothyroidism, unspecified; F32.A Depression, unspecified; R73.03 Prediabetes; E66.9 Obesity, unspecified; F41.0 Panic disorder [episodic paroxysmal anxiety]
CPT/HCPCS: 58662; 81025; 88305; J0131; J1100; J1885; J2001; J2250; J2405; J2704; J3010

== ENCOUNTER 2023-01-10 08:13 | Day surgery (SDC) | payer OTHER, SELFPAY ==
--- NOTE | 2023-01-09 13:59 | PDOC.DSDIS_ITS ---
Date of service: 01/10/23 Time of Service: 10:56 Discharge Plan Disposition Patient Disposition: Home Condition: Good Discharge Details Reason For Visit: Screening colonoscopy Attending Provider: Kevyn Warren Primary Care Provider: Minerva Muse Home Meds and New Rx's Prescriptions: Continued semaglutide (weight loss) 2.4 mg/0.75 mL pen injector 2.4 mg subcut QWEEK Qty: 3 3RF buspirone 10 mg tablet 10 mg PO BID Qty: 180 3RF levothyroxine 125 mcg tablet 125 mcg PO DAILY Qty: 90 3RF sertraline [Zoloft] 100 mg tablet 200 mg PO DAILY Qty: 180 3RF Rx Instructions: anxiety and panic attacks Discharge Instructions Instructions: Colorectal Polyps (GEN) Additional Instructions: Daphne, we are able to complete your colonoscopy today without any difficulty. I did find a polyp in your rectum. It was small to medium sized, and I removed it completely. I suspect this was the source of your positive Cologuard test. Nothing about the polyp appeared particularly worrisome. I will have it tested to see the nature of the polyp, and that will help determine your next colonoscopy test. 1. If tolerated, consume a soft, low fiber diet for 1-2 days. 2. Do not drive, drink alcohol, operate machinery, make critical decisions, or do activities that require coordination or balance for 24 hours. 3. Because air was put into your colon during the procedure, expelling air from your rectum (passing gas or farting) is normal. 4. You may not have a bowel movement for 1-3 days because of the colonoscopy prep. This is normal. 5. Go directly to the emergency room if you notice any of the following: Develop chills (warm to touch), or if you have a thermometer and your temperature is above 101 Difficulty breathing or difficultly swallowing Persistent vomiting Severe abdominal pain, other than gas cramps Severe chest pain Black, tarry stools Any bleeding ? exceeding one tablespoon 6. Call your physician if the site where your intravenous was started becomes red, swollen, painful, and warm to touch. 7. Your physician has reviewed your pre-procedure medications. Please continue to take those medications as previously ordered. You will be given specific inf ormation/education regarding any changes to your medications before leaving. Activity:: Activity as Tolerated Diet:: As Tolerated Discharge Orders Discharge Orders: Discharge Order (Routine); Ordered 01/09/23 Ordered By: Kevyn Warren DS: Diagnosis Discharge Diagnosis (1) Encounter for screening colonoscopy: Status: Acute Asessment and Plan: Follow-up on polypectomy results
--- NOTE | 2023-01-09 14:00 | W.COLOREPORT ---
Date of service: 01/10/23 Time of Service: 10:58 Colonoscopy Report Date of procedure: 01/10/23 Pre-op diagnosis general: Screening colonoscopy Post-op diagnosis procedure note: other (Rectal polyp) Procedure: Colonoscopy with polypectomy Surgeon: Kevyn Warren Anesthesia Type: General:No Airway Estimated blood loss (mL): 5 Complications: None Disposition: same day Indications: Daphne is a 47-year-old woman who needs a screening colonoscopy. Incidentally, she did try Cologuard before this, and had a positive Cologuard test. Prep: Miralax/Dulcolax Procedure Start Time: 10:21 Procedure End Time: 10:44 Retraction Time: 16 Findings: 0.25 cm rectal polyp Procedure Description: After the induction of monitored anesthetic care, and with the patient in left lateral decubitus position, I began by performing an external anorectal exam.? Perineum and skin were normal, as was the anal verge.? There was no evidence of external hemorrhoids.? Next, I performed a digital rectal exam.? I did not appreciate any abnormal findings.? Next, I advanced a colonoscope into the rectal vault.? I performed retroflexion.? This appeared normal.? Using insufflation, I then advanced the colonoscope beyond the rectal folds and into the sigmoid colon before advancing towards the cecum.? The scope was noted to be in the cecum by identification of the ileocecal valve and appendiceal orifice.? I then began withdrawing the colonoscope using repeated irrigation as necessary for full evaluation of the colonic mucosa. ?Once the scope was withdrawn to the level of the rectum, great care was taken to examine portions of the rectal folds.? Around 12 cm from the anal verge was a 0.25 cm polyp. It was sessile in nature. I removed it with cold forceps without any issues finally, the scope was withdrawn and the patient was brought to the same-day surgery recovery unit as the anesthetic wore off. ?The findings and instructions were shared with the patient prior to discharge. Sibley Bowel Prep Sibley Bowel Prep Right Colon: 3 Left Colon: 3 Transverse Colon: 3 Total Score: 9
[2023-01-10 08:49] VITALS: BP 138/97; PULSE 85; RESP 16; TEMP 36.5; O2SAT 99
[2023-01-10] MEDS: Lactated Ringers 1,000 ML 80 ML IV (09:03)
--- NOTE | 2023-01-10 09:43 | W.ANESPRE ---
General Info Date of Service Date Performed: 01/10/23 Height: 5 ft 4.5 in Weight: 99.9 kg Body Mass Index (BMI): 37.2 Surgical Procedure: Operation Date: 01/10/23 09:50 Proposed Procedure Side Surgeon celia Warren MD Meds Allergies and Home Medications Allergies Allergy/AdvReac Type Severity Reaction Status Date / Time No Known Allergies Allergy Verified 01/10/23 08:56 Home Medication Medication Instructions Recorded buspirone 10 mg tablet 10 mg PO BID #180 tab-caps 07/25/22 levothyroxine 125 mcg tablet 125 mcg PO DAILY #90 tab-caps 07/25/22 sertraline 100 mg tablet (Zoloft) 200 mg (2 x 100 mg) PO DAILY #180 07/25/22 tabs semaglutide (weight loss) 2.4 2.4 mg (0.75 mL) subcut QWEEK #3 mL 10/16/22 mg/0.75 mL subcutaneous pen injector Current Visit Medications: Current Medications Generic Name Dose Route Start Last Admin Trade Name Freq PRN Reason Stop Dose Admin Hyoscyamine Sulfate 0.125 mg 01/09/23 14:01 Hyoscyamine 0.125 Mg Sl/Oral/Chew SL 02/08/23 14:00 DIRECTED PRN Ringer's Solution 1,000 mls @ 80 mls/hr 01/10/23 06:00 01/10/23 09:03 IV 01/24/23 23:59 80 mls/hr INFUSION MU Administration IV Miscellaneous Supplies 1 each 01/10/23 06:00 Iv Access IV 01/24/23 23:59 DIRECTED MU Ondansetron HCl 4 mg 01/09/23 14:01 Ondansetron 4 Mg/2 Ml Vial IVP 02/08/23 14:00 Q4H PRN PRN Nausea / Vomiting Sodium Chloride 0 ml 01/10/23 06:00 Normal Saline Flush 10 Ml Syr IV 01/24/23 23:59 PRN PRN Sodium Chloride 0 ml 01/10/23 06:00 Normal Saline 10 Ml Vial IJ 01/24/23 23:59 DIRECTED PRN Sterile Water 0 ml 01/10/23 06:00 Water,Injection,Sterile 10 Ml Vial IJ 01/24/23 23:59 DIRECTED PRN PFSH Active Problems Active Problems: Problem Status Onset Code Encounter for screening colonoscopy Z12.11 Positive colorectal cancer screening using Cologuard test R19.5 Medical History Medical History Right ovarian cyst [id number] - CA-125 normal. Persistent Feb-Oct but then no right ovarian cyst intraoperatively. 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 About 50ml emesis reported by patient. Maria Elena PALMA Surgical History Surgical History History of laparoscopy For large right ovarian cyst - but right cyst not visualized at time of surgery. However, left ovary with enlarged with multiple small cysts that were removed. Tubal Ligation, Laparoscopic 2008 Incidental finding of ovarian cyst and removed with this surgery Tobacco Smoking/Tobacco Use Status: Never Passive smoking exposure: No Alcohol Alcohol Intake: current Alcohol intake frequency: a few times a month Alcohol type: wine Substance Use Substance use: Never Substance use type: does not use Prental History History 3 Para 3 Hx # Term Pregnancies 3 Multiple births Hx # Pregnancies Ectopic pregnancies AB induced Hx Number of Living Children 3 AB spontaneous Vital Signs and Lab Results Vital Signs Most Recent Vital Signs in EMR: Most Recent Vital Signs Temp Pulse Resp BP Pulse Ox 36.5 C 85 16 138/97 H 99 01/10/23 08:49 01/10/23 08:49 01/10/23 08:49 01/10/23 08:49 01/10/23 08:49 Point of Care Results Point of Care Results: POC- Test(urine) Negative 01/10/23 08:55 Lab Results Blood Type / Crossmatch: No Data to Display Complete Blood Count: No Data to Display Complete Metabolic Panel: No Data to Display Liver Function Panel: No Data to Display Coagulation Panel: No Data to Display Cardiac Panel: No Data to Display Arterial Blood Gas: No Data to Display Venous Blood Gas: No Data to Display Pancreas Panel: No Data to Display Thyroid Panel: No Data to Display Infectious Disease: No Data to Display Blood Cultures: No Data to Display Toxicology Panel: No Data to Display Panel: No Data to Display Anesthesia Assessment and Plan Anesthesia History Personal History: No History of Anesthesia Complications Family History: No Family History of Anesthesia Complications Exercise Tolerance Exercise Tolerance: Metabolic Equivalents>4 Pertinent Negatives Pertinent Negatives: No Symptoms of GERD, No Major Cardiovascular Symptoms or Complaints, No Major Pulmonary Symptoms or Complaints and No History of CVA/TIA Cardiac & Pulmonary Exam Cardiac Exam: Normal S1/S2 Heart Sounds Pulmonary Exam: Clear Bilateral Breath Sounds Implantable Cardiac Device Does patient have a Pacemaker or an ICD?: No Airway Exam Known Difficult Airway: No Mallampati Class: 2 Mouth Opening: Normal (> 3cm) Thyromental Distance: Greater than 3 cm Neck Range of Motion: Full ROM Neck Circumference: Normal Teeth Condition: Normal Dentition ASA Classification ASA Score: ASA 2 Emergency Case?: No NPO Status NPO Status: NPO Clears >2 hours, Solids >8 hours Status Status: Negative HCG Anesthesia Plan Resuscitation Status: Full Code Anesthesia Technique: General Anesthesia Airway Planned: Natural Airway Monitors Used: Standard Monitors
[2023-01-10 09:44] VITALS: BMI 37.2
--- NOTE | 2023-01-10 10:44 | BOWEL_PTH ---
PATIENT: Daphne Samson LOC: [facility] U#:[id number] AGE/SX: 47/F ROOM: RE01/10/[address]: Kevyn Warren MD : 1975 BED: DIS: 01/10/2023 SPEC #: [id number] RECD: 01/10/23 12:29 STATUS: FLORINA RE #: [id number] CHARLENE: 01/10/23 10:[address]: Kevyn Warren DEPT: Surgical Specimen RECD BY: Marie Rodriguez ENTERED: 01/10/23 12:30 SP TYPE: Bowel OTHR DR: Minerva Muse APRN Tissues: 1 - BIOPSY BOWEL Procedures: GROSS AND MICRO LEVEL 4 Comments: [id number]
[2023-01-10 10:49] VITALS: BP 129/87; PULSE 82; RESP 16; TEMP 36.4; O2SAT 98
[2023-01-10 11:15] VITALS: BP 128/96; PULSE 74; RESP 16; TEMP 36.7; O2SAT 98
--- NOTE | 2023-01-10 12:38 | W.ANESPOSTOP ---
Postoperative Evaluation Date, Time and Location Date Performed: 01/10/23 Time Performed: 10:49 Patient Location: Day Surgery Unit Vital Signs Most Recent Imported Vital Signs: Most Recent Vital Signs Temp Pulse Resp BP Pulse Ox 36.7 C 74 16 128/96 H 98 01/10/23 11:15 01/10/23 11:15 01/10/23 11:15 01/10/23 11:15 01/10/23 11:15 Pain Score Most Recent Pain Score: Most Recent Pain Score Pain Level 0 01/10/23 11:15 Assessment Mental Status: Awake (Alert & Oriented to Patient Baseline) Airway and Respiratory Function: Patent airway with normal (patient baseline) respiratory exam Cardiovascular Function: Hemodynamically Stable Hydration Status: Adequately Hydrated Nausea & Vomiting: No Nausea or Vomiting Pain: Pt. Denies Any Pain Peripheral Nerve Block: Patient did not receive a nerve block
== END 2023-01-10 11:34 | disposition home or self-care (01) ==
LOC: SUR 08:13
PROVIDERS: PCP Nurse Practitioner; Visit Provider Surgery
PROC: 0DJD8ZZ Inspection of Lower Intestinal Tract, Via Natural or Artificial Opening Endoscopic (ICD-10-PCS; CPT 45378; principal; 2023-01-10 09:45)
DX: Z12.11 Encounter for screening for malignant neoplasm of colon (principal); R19.5 Other fecal abnormalities; K63.5 Polyp of colon
CPT/HCPCS: 45380; 81025; 88305

== ENCOUNTER → 2023-07-08 02:36 | Outpatient (CLI) | payer OTHER, SELFPAY ==
--- NOTE | 2023-07-08 07:15 | DI.MAMMO_ITS ---
Exam(s) MAMMO SCREENING EXAM: MAMMO SCREENING CLINICAL HISTORY: screening,z12.39 TECHNIQUE: Bilateral full field digital CC and MLO mammographic images were obtained with 3D tomosyn thesis and utilizing computer aided detection (CAD). COMPARISON: Available for comparison. FINDINGS: Masses/Architectural Distortion: There appears to be a new 4 mm nodule in the retroareolar region of the right breast on the CC view. Microcalcifications: No suspicious pleomorphic-type are seen. Skin Thickening/Nipple Retraction: None. IMPRESSION: 1. New 4 mm retroareolar right breast nodule. 2. Spot compression views requested for further evaluation. Ultrasound may be indicated at that time . BI-RADS Category 0 - Assessment Incomplete: Need additional imaging evaluation Breast Density - Category B - Scattered areas of fibroglandular density Breast density category C or D implies that the patient has dense breast tissue. Dense breast tissue is very common and is not abnormal but dense breast tissue can make it harder to find cancer on a ma mmogram. Also, dense breast tissue may increase their breast cancer risk. This information about the result of the mammogram report was provided to the patient to raise their awareness. Use this report when you speak with the patient about their risks for breast cancer, which includes their family hist ory. At that time, you may recommend for more screening tests (Ultrasound or MRI) as they might be us eful based on their risk. A negative radiographic report should not delay biopsy if a dominant or clinically suspicious mass is present. Up to ten percent of cancers are not identified on mammography. A negative report may reinforce clinical impression. Adenosis and dense breasts may obscure an underlying neoplasm. False positive reports average 6 to 10%. Patient will receive a letter notifying them of these results.
== END ==
PROVIDERS: PCP Nurse Practitioner; Visit Provider Nurse Practitioner
DX: Z12.31 Encounter for screening mammogram for malignant neoplasm of breast (principal); N63.41 Unspecified lump in right breast, subareolar
CPT/HCPCS: 77063; 77067

== ENCOUNTER → 2023-07-10 03:50 | Outpatient (CLI) | payer OTHER, SELFPAY ==
--- NOTE | 2023-07-10 13:11 | DI.MAMMO_ITS ---
Exam(s) MAMMO SCREEN CALL BACK UNI EXAM: MAMMO SCREEN CALL BACK UNI CLINICAL HISTORY: F/U 4 MM RETROAREOLAR RT BREAST NODULE. TECHNIQUE: Craniocaudal and mediolateral oblique Full Field Digital Mammography views of the right b reast with Computer Aided Diagnosis. COMPARISON: Comparison is made with prior examinations. FINDINGS: Mammography/Tomosynthesis: Masses/Architectural Distortion: The area of nodularity does not persist on the additional views. No suspicious nodules or areas of architectural distortion are identified. Microcalcifictions: No suspicious pleomorphic-type are seen. Skin Thickening/Nipple Retraction: None. IMPRESSION: 1. No evidence of malignancy is noted. 2. Unless there is more urgent need, follow-up screening mammography is recommended, as per [employer] guidelines. 3. The findings were discussed with the patient on the date of the examination. BI-RADS Category 1 - Negative Breast Density - Category B - Scattered areas of fibroglandular density Breast density Category C or D implies that the patient has dense breast tissue. Dense breast tissue can make it harder to find cancer on a mammogram. Dense breast tissue is also associated with an incr eased risk of breast cancer. This information about the result of the mammogram report was provided to the patient to raise their awareness. Use this report when you speak with the patient about their risks for breast cancer, which includes their family history. At that time, you may recommend additional screening tests (Ultrasoun d or MRI) as these tests may add significant information. A negative radiographic report should not delay biopsy if a dominant or clinically suspicious mass is present. Up to ten percent of cancers are not identified on mammography. A negative report may reinforce clinical impression. Adenosis and dense breasts may obscure an underlying neoplasm. False positive reports average 6 to 10%. Patient will receive a letter notifying them of these results.
== END ==
PROVIDERS: PCP Nurse Practitioner; Visit Provider Nurse Practitioner
DX: N63.10 Unspecified lump in the right breast, unspecified quadrant (principal)
CPT/HCPCS: 77063; 77067

== ENCOUNTER 2024-04-24 00:50 | Outpatient (CLI) | payer OTHER, SELFPAY ==
[2024-04-24 12:34] LABS: Calculated LDL 125 mg/dL (<100); Cholesterol 196 mg/dL (<200); HDL Cholesterol 61 mg/dL (>or=50); TSH (W/Ref FT4) 2.09 uIU/mL (0.36-3.74); Triglyceride 52 mg/dL (<150)
== END 2024-04-24 00:51 | disposition home or self-care (01) ==
PROVIDERS: PCP Nurse Practitioner; Visit Provider Nurse Practitioner
DX: E03.9 Hypothyroidism, unspecified (principal)
CPT/HCPCS: 36415; 80061; 84443